=== PATIENT | male | born 1955 | race Caucasian/White ===

== ENCOUNTER 2018-05-10 10:30 | Inpatient (IN) ==
--- NOTE | 2018-05-10 11:25 | Emergency Department Note ---
Disposition Clinical Impression: Cellulitis Qualifiers: Site of cellulitis: other site Qualified Code(s): L03.818 - Cellulitis of other sites Disposition: Admitted As Inpatient Condition: Fair Referrals: Lucy Mackay CNP [Primary Care Provider] - Forms: ED Satisfaction Letter Time of Disposition: 13:34 General Adult HPI - General Chief complaint: ED Extremity Problem,Nontraumatic Stated complaint: RLE Cellulitis Time Seen by Provider: 05/10/18 11:01 Source: patient, family Limitations: no limitations - History of Present Illness Pain Scale: 6 - Related Data Home Medications Medication Instructions Recorded Confirmed Albuterol Sulfate [Proair Hfa] 2 puff IH Q4H PRN 05/10/18 05/10/18 Ascorbic Acid [Vitamin C] 100 mg PO DAILY 05/10/18 05/10/18 Aspirin Enteric Coated [Aspirin EC] 325 mg PO DAILY 05/10/18 05/10/18 Carvedilol 3.125 mg PO BID 05/10/18 05/10/18 Furosemide [Lasix] 20 mg PO QAM 05/10/18 05/10/18 Furosemide [Lasix] 40 mg PO QPM PRN 05/10/18 05/10/18 HydrOXYzine Pamoate [Vistaril] 50 mg PO Q8H 05/10/18 05/10/18 Ipratropium/Albuterol Neb [Duoneb] 3 ml IH Q6HR 05/10/18 05/10/18 Lisinopril [Zestril] 40 mg PO DAILY 05/10/18 05/10/18 Simvastatin [Zocor] 20 mg PO HS 05/10/18 05/10/18 Tamsulosin [Flomax] 0.4 mg PO DAILY 05/10/18 05/10/18 Vitamin E 1,000 unit PO DAILY 05/10/18 05/10/18 glyBURIDE [GlyBURIDE] 5 mg PO DAILY 05/10/18 05/10/18 Allergies Allergy/AdvReac Type Severity Reaction Status Date / Time No Known Allergies Allergy Verified 05/10/18 10:33 Past Medical History - Past Medical History Medical history: Reports: diabetes, hypertension, myocardial infarction Psychiatric history: Reports: no psych history - Social History Smoking Status: Current every day smoker Smokeless Tobacco Status: No Alcohol use: Reports: none Drug use: Reports: none Physical Exam - General Limitations: no limitations General appearance: alert, in no apparent distress Course Vital Signs Temperature 97.5 F L 05/10/18 10:33 Pulse Rate 57 05/10/18 10:33 Respiratory Rate 16 05/10/18 10:33 Blood Pressure 216/101 05/10/18 10:33 O2 Sat by Pulse Oximetry 96 05/10/18 10:33 Temperature 97.5 F L 05/10/18 11:13 Pulse Rate 57 05/10/18 11:13 Respiratory Rate 16 05/10/18 11:13 Blood Pressure 216/101 05/10/18 11:13 O2 Sat by Pulse Oximetry 96 05/10/18 11:13 Oxygen Delivery Oxygen Delivery Room Air Medical Decision Making - Lab Data Result diagrams: 05/10/18 12:02 05/10/18 12:02 Lab Results 05/10/18 05/10/18 Range/Units 12:02 12:02 WBC 9.1 (4.3-11.1) K/mcL RBC 5.32 (4.19-5.50) M/mcL Hgb 16.5 (12.9-16.9) g/dL Hct 50.3 H (37.5-50.1) % MCV 94.5 (83.0-100.0) fL MCH 31.0 (28.0-33.3) pg MCHC 32.8 (31.6-35.5) g/dL RDW 13.7 (11.5-14.5) % Plt Count 168 (140-400) K/mcL MPV 9.4 (9.4-12.4) fL Immature Gran % 0.3 (0-4) % Seg Neutrophils % 72.5 % Lymphocytes % 19.6 % Monocytes % 4.6 % Eosinophils % 2.4 % Basophils % 0.6 % Neutrophils # 6.6 (1.6-8.9) K/mcL Lymphocytes # 1.8 (0.6-4.6) K/mcL Monocytes # 0.4 (0.0-1.3) K/mcL Eosinophils # 0.2 (0.0-0.6) K/mcL Basophils # 0.1 (0.0-0.2) K/mcL Sodium 141 (136-145) mEq/L Potassium 4.5 (3.5-5.1) mEq/L Chloride 104 (98-107) mEq/L Carbon Dioxide 31 H (23-29) mEq/L BUN 33 H (8-23) mg/dL Creatinine 2.06 H (0.70-1.30) mg/dL Est GFR ( Amer) 40 L (> 60) Est GFR (Non-Af Amer) 33 L (> 60) BUN/Creatinine Ratio 16 (6-26) Glucose 175 H (70-105) mg/dL Calculated Osmolality 304 H (280-300) Calcium 9.0 (8.6-10.3) mg/dL Attestation Statement - Attestation Attestation: I examined this patient and my medical decision-making was reviewed with the Resident Physician. I agree with the documented findings, disposition and treatment plan as described except to the extent set forth below. Patient presents to the ED with a chief complaint of right leg infection. Onset 1 month ago. He saw his PCP and was started on a by mouth antibiotic. States he was called to come to the ED for IV antibiotics. No fevers. Patient is a diabetic. Poorly controlled hypertensive. On examination he has some erythema to the right mazariegos. There is also some oozing of serous fluid. Plan. Culture sent. IV antibiotic likely admission as he started outpatient treatment. No DVT. Patient admitted for IV antibiotic. He does not meet sepsis criteria. Wound culture sent. Patient is given Zosyn and vancomycin.
--- NOTE | 2018-05-10 11:51 | Emergency Department Note ---
Disposition Clinical Impression: Cellulitis Qualifiers: Site of cellulitis: other site Qualified Code(s): L03.818 - Cellulitis of other sites Disposition: Admitted As Inpatient Condition: Fair Referrals: Lucy Mackay CNP [Primary Care Provider] - Forms: ED Satisfaction Letter Time of Disposition: 13:31 General Adult HPI - General Chief complaint: ED Extremity Problem,Nontraumatic Stated complaint: RLE Cellulitis Time Seen by Provider: 05/10/18 11:01 Source: patient, family Mode of arrival: ambulatory Limitations: no limitations Nursing Notes Reviewed: Yes Vital Signs Reviewed: Yes - History of Present Illness HPI Narrative: Patient is a 62-year-old male with a past medical history of diet-controlled diabetes, hypertension presents to the emergency department for evaluation of right lower extremity swelling and drainage. The patient states that the symptoms started approximately 1.5 months ago. He states he noticed that there was a area of drainage over his right anterior mazariegos states that he tried treating at home with hydrogen peroxide for a week and then it was not improving so he followed up with his primary care physician who is a nurse practitioner and she prescribed him an antibiotic by mouth for an unknown duration of time according to the patient. He states that he called her office today and was told that he needs to come to the emergency department for IV antibiotics. According to the patient he has continued to have drainage through this right lower extremity wound as well as diffuse lower extremity pain. He denies any numbness or tingling. Denies any history of blood clots. He states that he did have history of a infection of the skin over his right posterior shoulder which caused him to become septic and he was admitted to the hospital for a month in the past. Pain Scale: 6 - Related Data Home Medications Medication Instructions Recorded Confirmed Albuterol Sulfate [Proair Hfa] 2 puff IH Q4H PRN 05/10/18 05/10/18 Ascorbic Acid [Vitamin C] 100 mg PO DAILY 05/10/18 05/10/18 Aspirin Enteric Coated [Aspirin EC] 325 mg PO DAILY 05/10/18 05/10/18 Carvedilol 3.125 mg PO BID 05/10/18 05/10/18 Furosemide [Lasix] 20 mg PO QAM 05/10/18 05/10/18 Furosemide [Lasix] 40 mg PO QPM PRN 05/10/18 05/10/18 HydrOXYzine Pamoate [Vistaril] 50 mg PO Q8H 05/10/18 05/10/18 Ipratropium/Albuterol Neb [Duoneb] 3 ml IH Q6HR 05/10/18 05/10/18 Lisinopril [Zestril] 40 mg PO DAILY 05/10/18 05/10/18 Simvastatin [Zocor] 20 mg PO HS 05/10/18 05/10/18 Tamsulosin [Flomax] 0.4 mg PO DAILY 05/10/18 05/10/18 Vitamin E 1,000 unit PO DAILY 05/10/18 05/10/18 glyBURIDE [GlyBURIDE] 5 mg PO DAILY 05/10/18 05/10/18 Allergies Allergy/AdvReac Type Severity Reaction Status Date / Time No Known Allergies Allergy Verified 05/10/18 10:33 All systems ED: reviewed and negative except as stated. Review of Systems: As Per HPI Constitutional: Denies: fever Cardiovascular: Denies: chest pain, palpitations Respiratory: Denies: cough, dyspnea, wheezes Gastrointestinal: Denies: abdominal pain, nausea, vomiting Musculoskeletal: Denies: back pain, neck pain Integumentary: Reports: rash (Right lower extremity) Past Medical History - Past Medical History Attestation: Yes The following information was validated with the patient. Medical history: Reports: diabetes, hypertension, myocardial infarction Psychiatric history: Reports: no psych history - Social History Smoking Status: Current every day smoker Smokeless Tobacco Status: No Alcohol use: Reports: none Drug use: Reports: none Physical Exam CONSTITUTIONAL: Patient is unkempt in appearance and has multiple areas of what appear to be dirt over his upper and lower extremities. A&O X 3, in no apparent distress. HEAD: Normocephalic; atraumatic EYES: PERRL, no scleral icterus NOSE: The nose is normal in appearance without rhinorrhea NECK: No JVD or distended neck veins RESP: Normal chest excursion with respiration; breath sounds clear and equal bilaterally; no wheezes, rhonchi, or rales CARD: Regular rhythm, without murmurs, rub or gallop ABD: Non-distended; non-tender, soft, without rigidity, rebound or guarding,no pulsatile mass CHEST: No pain with palpation SKIN: Skin over his right lower extremity is mostly effected near the anterior medial mazariegos there is a large area of what appears to be superficial skin that appears to be were all with a mucopurulent drainage present. He has +2 dorsalis pedis and posterior tibialis pulses. EXTREMITIES: Pulses are 2 plus and equal times 4 extremities, He has mild edema is consistent bilateral extremities or calf muscle pain - General Limitations: no limitations General appearance: alert, in no apparent distress Course Course Narrative: Plan at this time is evaluate the patient's right lower extremity edema, pain, and drainage. His signs and symptoms do appear consistent with a cellulitis and given that the patient appears to have a difficult time with hygiene take care of himself with a history of admission for sepsis due to cellulitis plan at this time is to order basic labs and rule out a DVT of his right lower extremity and then he will need to come in to the hospital for further treatment concerning that he has failed outpatient antibiotics. The patient agrees this plan. - Reevaluation(s) Reevaluation #1: Patient's ultrasound of his right lower extremity was negative for DVT. Patient was started on broad-spectrum antibiotic coverage for his cellulitis given fell outpatient treatment. I discussed the patient's case with Dr. Proctor , and he agrees to accept the patient. Time: 13:32 Vital Signs Temperature 97.5 F L 05/10/18 10:33 Pulse Rate 57 05/10/18 10:33 Respiratory Rate 16 05/10/18 10:33 Blood Pressure 216/101 05/10/18 10:33 O2 Sat by Pulse Oximetry 96 05/10/18 10:33 Temperature 97.5 F L 05/10/18 11:13 Pulse Rate 57 05/10/18 11:13 Respiratory Rate 16 05/10/18 11:13 Blood Pressure 216/101 05/10/18 11:13 O2 Sat by Pulse Oximetry 96 05/10/18 11:13 Oxygen Delivery Oxygen Delivery Room Air Medical Decision Making - Medical Records Medical records reviewed: Yes I reviewed the patient's medical records. - Lab Data Lab results reviewed: Yes I reviewed the patient's lab results. Result diagrams: 05/10/18 12:02 05/10/18 12:02 Lab Results 05/10/18 05/10/18 Range/Units 12:02 12:02 WBC 9.1 (4.3-11.1) K/mcL RBC 5.32 (4.19-5.50) M/mcL Hgb 16.5 (12.9-16.9) g/dL Hct 50.3 H (37.5-50.1) % MCV 94.5 (83.0-100.0) fL MCH 31.0 (28.0-33.3) pg MCHC 32.8 (31.6-35.5) g/dL RDW 13.7 (11.5-14.5) % Plt Count 168 (140-400) K/mcL MPV 9.4 (9.4-12.4) fL Immature Gran % 0.3 (0-4) % Seg Neutrophils % 72.5 % Lymphocytes % 19.6 % Monocytes % 4.6 % Eosinophils % 2.4 % Basophils % 0.6 % Neutrophils # 6.6 (1.6-8.9) K/mcL Lymphocytes # 1.8 (0.6-4.6) K/mcL Monocytes # 0.4 (0.0-1.3) K/mcL Eosinophils # 0.2 (0.0-0.6) K/mcL Basophils # 0.1 (0.0-0.2) K/mcL Sodium 141 (136-145) mEq/L Potassium 4.5 (3.5-5.1) mEq/L Chloride 104 (98-107) mEq/L Carbon Dioxide 31 H (23-29) mEq/L BUN 33 H (8-23) mg/dL Creatinine 2.06 H (0.70-1.30) mg/dL Est GFR ( Amer) 40 L (> 60) Est GFR (Non-Af Amer) 33 L (> 60) BUN/Creatinine Ratio 16 (6-26) Glucose 175 H (70-105) mg/dL Calculated Osmolality 304 H (280-300) Calcium 9.0 (8.6-10.3) mg/dL
[2018-05-10] MEDS ORDERED: *HR* Labetalol 100 MG/20 ML MDV IVP ONE (12:01)
[2018-05-10 12:15] LABS: Basophils # 0.1 K/mcL (0.0-0.2); Basophils % 0.6 %; Eosinophils # 0.2 K/mcL (0.0-0.6); Eosinophils % 2.4 %; Hematocrit 50.3 % (37.5-50.1); Hemoglobin 16.5 g/dL (12.9-16.9); Immature Granulocytes % 0.3 % (0-4); Lymphocytes # 1.8 K/mcL (0.6-4.6); Lymphocytes % 19.6 %; Mean Corpuscular HGB Conc 32.8 g/dL (31.6-35.5); Mean Corpuscular Volume 94.5 fL (83.0-100.0); Mean Platelet Volume 9.4 fL (9.4-12.4); Monocytes # 0.4 K/mcL (0.0-1.3); Monocytes % 4.6 %; Neutrophils # 6.6 K/mcL (1.6-8.9); Platelet Count 168 K/mcL (140-400); Red Blood Count 5.32 M/mcL (4.19-5.50); Red Cell Distribution Width 13.7 % (11.5-14.5); Segmented Neutrophils % 72.5 %
[2018-05-10 12:34] LABS: Potassium 4.5 mEq/L (3.5-5.1)
[2018-05-10] MEDS ORDERED: Piperacillin/Tazobactam 3.375 GM in Water for inj. (sterile) 20 ML 20 ML IVP ONE (13:29)
[2018-05-10] MEDS ORDERED: *HR* Labetalol 20 MG/4 ML SYRINGE IVP ONE (13:30)
--- NOTE | 2018-05-10 17:13 | Internal Med History&Physical ---
Date of Encounter: 05/10/18 Time of Encounter: 15:00 Internal Medicine - H&P: HPI Chief complaint: Swelling, pain and infection lower legs, shortness of breath . Admitted From: Emergency Dept Plans for Post Hospital Care: Home (Latrice Miller is 62-year-old male who enters through the emergency room for chief complaint of swelling pain and infection of the lower limbs shortness of breath. He states that he was seen by his primary care and that they recommended that he be seen in the emergency room for cellulitis of the lower extremities. Reports that onset of signs and symptoms occurred approximately 1-1/2 months ago he does have areas on the right anterior mazariegos that are draining a serous fluid and he has been using hydrogen peroxide for about a week movement in the drainage or the swelling of the lower extremities . He states that his primary care provider whom is a nurse practitioner has prescribed him oral antibiotics but they have not been effective in decreasing the swelling or the drainage from the legs.Past history is positive for diabetes type 2 hypertension) History of present illness: Mr. Miller is a 62 year old male who enters through the emergency room for chief complaint of swelling pain and infection of the lower limbs, and shortness of breath. He states that he was seen by his primary care and that they recommended that he be seen in the emergency room for cellulitis of the lower extremities. Reports that onset of signs and symptoms occurred approximately 1-1/2 months ago, and has worsened over time. He states that he has areas on the areas on the right anterior mazariegos that are draining a serous fluid. He has been using hydrogen peroxide for about a week w/o improvement in the drainage or the swelling of the lower extremities . He states that his primary care provider whom is a nurse practitioner has prescribed him oral antibiotics but they have not been effective in decreasing the swelling or the drainage from the legs. He is unaware of how long he has used the medication. He rates his pain as mild L4 on a scale of 10 intermittently worse with ambulation prolonged standing and dependent position. He denies any numbness or tingling or weakness in the lower extremities at this time denies history of blood clots or pulmonary embolism. In the emergency room he was given Zosyn and vancomycin for the cellulites in the lower extremities. Blood pressure was normal in the malignant high with 216 /101, he was given labetalol 10 mg IV push at that time in the emergency room 1 dose. It was decided to have the patient admitted to observation unit for better evaluation of cellulites congestive heart failure swelling of the lower extremities and hypertension . Past history is positive for diabetes type 2, hypertension, congestive heart failure. Home medications were reconciled and he does show that he uses albuterol sulfate H with a DuoNeb hand-held nebulizers every 6 hours takes large adult aspirin 325 daily is on Coreg 3.125 mg twice daily Lasix 40 mg daily glyburide 5 mg daily lisinopril 4040 mg daily and simvastatin 20 mg daily along with Flomax 0.4 mg at at bedtime. Review of initial labs shows that he has a hemoglobin of 16.5 with hematocrit of 50.3 which is elevated, carbon dioxide is elevated at 31 BUN is elevated at 33 with an elevated crit of 2.06 GFR is 33. Patient will be consulted by nephrology for acute kidney injury stage III moderate renal failure. Glucose was elevated at 175. Social history is positive for smoking 2 packs per day, he denies any use of illicit drugs or alcohol. Past Med Surg Social Fam HX - Past Medical History Source: patient Medical history: CHF, COPD, diabetes, hypertension, myocardial infarction Psychiatric history: no psych history - Social History Smoking Status: Heavy tobacco smoker Packs per day: 2 Smokeless Tobacco Status: Yes (2 PPD x 40+ years) Alcohol use: none Drug use: none Current living situation: Home - Independent Activity Level: Independent ambulation Recent Out of Country Travel Within the Last 8 Weeks: No Exposure or Possible Exposure to Illness During Travel: No Internal Medicine - H&P: Meds Albuterol Sulfate [Proair Hfa] 2 puff IH Q4H PRN 05/10/18 [History] Ascorbic Acid [Vitamin C] 100 mg PO DAILY 05/10/18 [History] Aspirin Enteric Coated [Aspirin EC] 325 mg PO DAILY 05/10/18 [History] Carvedilol 3.125 mg PO BID 05/10/18 [History] Furosemide [Lasix] 20 mg PO QAM 05/10/18 [History] Furosemide [Lasix] 40 mg PO QPM PRN 05/10/18 [History] HydrOXYzine Pamoate [Vistaril] 50 mg PO Q8H 05/10/18 [History] Ipratropium/Albuterol Neb [Duoneb] 3 ml IH Q6HR 05/10/18 [History] Lisinopril [Zestril] 40 mg PO DAILY 05/10/18 [History] Simvastatin [Zocor] 20 mg PO HS 05/10/18 [History] Tamsulosin [Flomax] 0.4 mg PO DAILY 05/10/18 [History] Vitamin E 1,000 unit PO DAILY 05/10/18 [History] glyBURIDE [GlyBURIDE] 5 mg PO DAILY 05/10/18 [History] 3 Allergy/AdvReac Type Severity Reaction Status Date / Time No Known Allergies Allergy Verified 05/10/18 10:33 All Systems PM: A 10-system review of systems was performed and is negative for pertinent findings except as documented above in the HPI. - Constitutional Constitutional: as per HPI - EENT Eyes: no change in vision, no discharge, no pain, no photophobia Ears: no ear discharge, no ear pain, no tinnitus Nose, mouth and throat: no dysphagia, no nasal discharge, no neck pain, no sore throat - Cardiovascular Cardiovascular ROS IM: dyspnea, dyspnea on exertion, edema, orthopnea, no diaphoresis, no irregular heart rhythm, no palpitations, no syncope - Respiratory Respiratory: cough, dyspnea, dyspnea on exertion, wheezing, chest congestion, excessive phlegm production - Gastrointestinal Gastrointestinal: no abdominal pain, no diarrhea, no hematemesis, no hematochezia, no melena, no nausea, no vomiting - Genitourinary Genitourinary ROS male: as per HPI - Musculoskeletal Musculoskeletal ROS IM: myalgias Additional comments: sswelling drqainage, and pain bilateral lower ext. - Integumentary Integumentary IM: erythema, new lesions, rash Additional comments: serous drainage, right lower anterior leg - Neurological Neurological ROS: no confusion, no convulsions, no focal weakness, no numbness, no tingling, no tremor(s) - Psychiatric Psychiatric: anxiety, irritability Additional comments: uanable to sleep d/t pain in lower ext. - Endocrine Endocrine IM: as per HPI - Hematologic/Lymphatic Additional comments: lymphedema lower ext bilat - Allergic/Immunologic Allergic/Immunologic: as per HPI - Constitutional Vitals: Temp Pulse Resp BP Pulse Ox 97.7 F 49 15 184/96 94 05/10/18 14:35 05/10/18 14:35 05/10/18 14:35 05/10/18 14:35 05/10/18 14:35 General appearance: Present: cooperative, A&O X 3, morbidly obese, pleasant Exam: remains hypertensive will add norvasc 5 mg to daily medications - Head Head exam: Present: atraumatic, normocephalic - Eye Eye exam: Present: PERRL, conjuntiva pink, sclera anicteric Pupils: Present: PERRL - Neck Neck exam general surgery: Present: supple, trachea midline. Absent: lymphadenopathy - Respiratory Respiratory exam: Present: decreased breath sounds, wheezes - Cardiovascular Cardiovascular exam: Present: RRR, +S1, +S2. Absent: diastolic murmur, gallop, rubs, systolic murmur - GI/Abdominal GI/Abdominal exam: Present: normal bowel sounds - Extremities Exam Extremities exam: Present: joint swelling, pedal edema, tenderness Additional comments: 2+ non-pitting edema, with serous drainage, erythema right anterior tibia, left pedal edema with erythema distal 2/3rds lower ext. - Neurological Exam Neurological exam: Present: CN II-XII intact, oriented X3, no focal deficits. Absent: pronater drift, facial droop, speech deficit - Psychiatric Psychiatric exam: Present: normal affect, normal mood - Skin Skin exam: Present: erythema Additional comments: bilat 2/3rds lower ext. Internal Med - H&P Results - Labs CBC & Chem 7: 05/10/18 12:02 05/10/18 12:02 - Time Spent With Patient Total time spent is greater than 50% in coordination of care (as documented) at patient's floor/unit and/or counseling patient:
[2018-05-10] MEDS ORDERED: Insulin LISPRO 300 UNITS/3 ML VIAL SQ SCH (18:00)
[2018-05-10] MEDS ORDERED: Ipratropium/Albuterol Neb 3 ML IH SCH (18:00)
[2018-05-10] MEDS ORDERED: Dextrose Gel 15 GM/37.5 ML TUBE PO PRN ×2 (18:57)
[2018-05-10] MEDS ORDERED: D5% in Water 1,000 ML IVC PRN (18:57)
[2018-05-10] MEDS ORDERED: *HR* Dextrose 50 % in Water (Syg) 50 ML SYRINGE IVP PRN (18:57)
[2018-05-10] MEDS: *HR* HYDROcodone/Acet 5/325 mg TABLET PO PRN ×2 (19:25→23:59)
[2018-05-10] MEDS: Nicotine 21 MG PATCH.TD24 TD SCH (19:28)
[2018-05-10] MEDS: amLODIPine 5 MG TABLET PO SCH (19:28)
[2018-05-10] MEDS ORDERED: Ipratropium/Albuterol Neb 3 ML IH PRN (20:47)
[2018-05-10] MEDS: Insulin DETEMIR 100 UNIT/ML X5UNITS SQ SCH (21:35)
[2018-05-10] MEDS: 0.9 % Sodium Chloride PF in SYR 10 ML VIAL IVP SCH (21:37)
[2018-05-10] MEDS: hydrOXYzine pamoate 25 MG CAPSULE PO PRN (21:37)
[2018-05-10] MEDS: Ipratropium/Albuterol Neb 3 ML IH SCH (21:42)
[2018-05-10] MEDS: Piperacillin/Tazobactam 3.375 GM in 0.9 % Sodium Chloride Mini Bag 100 ML IVPB SCH (23:55)
[2018-05-11] MEDS: Ipratropium/Albuterol Neb 3 ML IH SCH ×4 (03:20→21:34)
[2018-05-11] MEDS: hydrOXYzine pamoate 25 MG CAPSULE PO PRN ×2 (04:12→20:45)
[2018-05-11] MEDS: *HR* Enoxaparin 150 MG/ML SYRINGE SQ SCH ×2 (04:12→17:47)
[2018-05-11] MEDS: *HR* HYDROcodone/Acet 5/325 mg TABLET PO PRN ×3 (04:13→22:09)
[2018-05-11] MEDS: 0.9 % Sodium Chloride PF in SYR 10 ML VIAL IVP SCH ×4 (04:15→20:44)
[2018-05-11] MEDS ORDERED: Insulin LISPRO 300 UNITS/3 ML VIAL SQ SCH (08:00)
[2018-05-11] MEDS ORDERED: Lisinopril 20 MG TABLET PO SCH (09:00)
[2018-05-11 09:51] LABS: Estimated Average Glucose 128 mg/dl; Hemoglobin A1C 6.1 %
--- NOTE | 2018-05-11 10:29 | Nephrology Consult Note ---
Date of Encounter: 05/11/18 Time of Encounter: 11:05 Assessment and Plan (1) DAHLIA (acute kidney injury) Current Visit: Yes Status: Acute DAHLIA on CKD stage III with cellulitis, recent hvy use of NSAIDs, hemodynamics and hence multifactorial etiologies appear to be contributing in the setting of CKD stage III from DM. Should hold Lisinopril. He is at risk for even worsened DAHLIA d/t the need for diuresis of his signifiant peripheral edema (which could also represent A/C Systolic HF -- see below), but also from the medications. Recommend holding Lisinopril and starting an DAHLIA on CKD work up with UA, retroperitoneal U/S, and etc. No urgent DISPATCHER REFINERY needs today, but continue to follow a renal protective strategy by dosing Rx by GFR/CrCl (cody the [facility] and generally pharmacy will dose in this scenario), plus strict I/Os, daily weights, low Na/K+/Phos diet. Will follow with you. Of note, my colleague Dr. Granados will start rounding for the Nephrology service tomorrow. Thank you. (2) CKD (chronic kidney disease), stage III Current Visit: Yes Status: Acute Renal risk factors: DM, Obesity, CHF hx. I saw in his PCP's notes that he had seen a aircraft ordnance systems mechanic outside of the [place] system, but I could not find any Consult notes from Nephro. There was also a comment in the encounter with his PCP from last week in which he reported that he stopped follow up with his aircraft ordnance systems mechanic. (3) Peripheral edema Current Visit: Yes Status: Acute Acute on Chronic likely multifactorial in etiology with dietary indiscretion plus known systolic HF. Recommend Echo as he may be in Acute on chronic systolic HF. The peripheral edema has also likely contributed to his Cellulitis. (4) Diabetic renal disease Current Visit: Yes Status: Chronic His longstanding DM is likely a contributor to his CKD. Qualifiers: Diabetes mellitus type: type 2 Qualified Code(s): E11.21 - Type 2 diabetes mellitus with diabetic nephropathy (5) Chronic systolic CHF (congestive heart failure) Current Visit: Yes Status: Chronic I reviewed the notes in his PCP's eCW chart that commented on an Echo from October with an EF of about 35% that was found during a hospitalization at [facility], and during which he underwent a [facility] d/t the new finding of CHF. In the PCP's notes, the pt reported during a visit earlier this week that he stopped following up with his coremaker pipe and stopped checking BPs and BGs at home. (6) Cellulitis Current Visit: Yes Status: Acute As per primary, but I recommend caution with dual Vano and Zosyn as this combo has a higher potential for ATN from nephrotoxicity, and he already has DAHLIA on CKD 3. Qualifiers: Site of cellulitis: other site Qualified Code(s): L03.818 - Cellulitis of other sites History of Present Illness - Reason for Consult Consult date: 05/10/18 Acute Kidney Injury, Chronic Kidney Disease Requesting physician: Ene Garcia - Chief Complaint Worsening LE swelling with cellulitis - History of Present Illness Hermes Miller is a very pleasant 62 y/o gentleman with a pmh of longstanding/ poorly controlled T2DM, obesity, HTN, CAD and et al who presented with cellulitis and worsened lower extremity edema. He reported that he's been "lots " of IBU. He did not affirm N/v/D or F/C. He said he may have seen a prior aircraft ordnance systems mechanic, but he cannot recall when or who. I logged into [facility] and he affirmed what I read, that he stopped going to see his coremaker pipe and other specialists due to not having money for a co-pay. He did not affirm CP. Past Med Surg Social Fam HX - Past Medical History Medical history: CHF, COPD, diabetes, hypertension, myocardial infarction Psychiatric history: no psych history - Social History Smoking Status: Heavy tobacco smoker Packs per day: 2 Smokeless Tobacco Status: Yes (2 PPD x 40+ years) Alcohol use: none Drug use: none Medications and Allergies Albuterol Sulfate [Proair Hfa] 2 puff IH Q4H PRN 05/10/18 [History] Ascorbic Acid [Vitamin C] 100 mg PO DAILY 05/10/18 [History] Aspirin Enteric Coated [Aspirin EC] 325 mg PO DAILY 05/10/18 [History] Carvedilol 3.125 mg PO BID 05/10/18 [History] Furosemide [Lasix] 20 mg PO QAM 05/10/18 [History] Furosemide [Lasix] 40 mg PO QPM PRN 05/10/18 [History] HydrOXYzine Pamoate [Vistaril] 50 mg PO Q8H 05/10/18 [History] Ipratropium/Albuterol Neb [Duoneb] 3 ml IH Q6HR 05/10/18 [History] Lisinopril [Zestril] 40 mg PO DAILY 05/10/18 [History] Simvastatin [Zocor] 20 mg PO HS 05/10/18 [History] Tamsulosin [Flomax] 0.4 mg PO DAILY 05/10/18 [History] Vitamin E 1,000 unit PO DAILY 05/10/18 [History] glyBURIDE [GlyBURIDE] 5 mg PO DAILY 05/10/18 [History] Sulfamethoxazole/Trimeth DS [Bactrim DS] 1 each PO BID 10 Days #20 tablet [Rx] amLODIPine [Norvasc] 5 mg PO DAILY #30 tablet 05/13/18 [Rx] 3 Allergy/AdvReac Type Severity Reaction Status Date / Time No Known Allergies Allergy Verified 05/10/18 10:33 Review of Systems All Systems: reviewed and no additional remarkable complaints except as stated Exam - Vital Signs Vital signs: Initial Vital Signs Temp Pulse Resp BP Pulse Ox 97.5 F L 57 16 216/101 96 05/10/18 10:33 05/10/18 10:33 05/10/18 10:33 05/10/18 10:33 05/10/18 10:33 Vital Signs - Last 8 Hours Temp Pulse Resp BP Pulse Ox 05/11/18 07:23 97.8 F 66 18 191/78 91 05/11/18 03:22 14 93 Intake and Output 05/10/18 05/11/18 05/11/18 23:59 07:59 15:59 Intake Total 500 / 500 340 / 340 240 / 240 Balance 500 / 500 340 / 340 240 / 240 Intake: IV Fluids 500 / 500 100 / 100 Zosyn 3.375 GM In 0.9 % Sodium 100 / 100 Chloride (Mini-Bag +) 100 ML @ 25 mls/hr IVPB Q8HR [facility] Rx#: [id number] Vancocin 2,000 MG In 0.9 % 500 / 500 Sodium Chloride 500 ML @ 250 mls/hr IVPB ONCE ONE Rx#: [id number] Oral 240 / 240 240 / 240 Other: Meal Breakfast Percent of Meal Consumed 100% # Voids 1 Weight 148.3 kg Blood Glucose* 219 132 Patient Weight 05/11/18 23:59 Weight 148.3 kg - General Appearance General appearance: well-developed, well-nourished, appears started age, obese EENT: ATNC, PERRL, mucous membranes moist Neck: supple Respiratory: course breath sounds Cardiology: edema, regular rate, regular rhythm, normal S1, normal S2 Gastrointestinal: normoactive bowel sounds, no tenderness, no guarding Integumentary: no rash, warm and dry, chronic venous stasis Neurologic: no focal deficit, no asterixis, alert and oriented x3 Musculoskeletal: erythema, no cyanosis, no clubbing Psychiatric: mood/affect appropriate, cooperative Results - Lab Results 05/13/18 06:29 05/13/18 06:29 Most recent lab results Calcium 9.0 mg/dL (8.6-10.3) 05/10/18 12:02 I reviewed the labs, vitals, imaging, progress notes, med lists. Consult Discharge Plan - Plan Instructions: Cellulitis (DC) Additional Instructions: Cleanse bilateral lower extremities with CHG soap daily and keep elevated as often as tolerated. F/U with PCP on 05/16. Referrals: Lucy Mackay CNP [Primary Care Provider] - 05/21/18 1:00 pm Prescriptions: amLODIPine [Norvasc] 5 mg PO DAILY #30 tablet Sulfamethoxazole/Trimeth DS [Bactrim DS] 1 each PO BID 10 Days #20 tablet
--- NOTE | 2018-05-11 11:12 | Internal Med Progress Note ---
Hospitalist Progress Note - Encounter Date of Encounter: 05/11/18 Time of Encounter: 11:10 - Subjective Interval History: Pt states he has been self treating flea bites with balm. He states LE wound was foul smelling and had purulent drainage but has slowly been improving. He denies fever, chills, N/V, or diarrhea. He denies CP or SOB. - Exam Vitals: Temp Pulse Resp BP Pulse Ox 97.8 F 66 18 191/78 91 05/11/18 07:23 05/11/18 07:23 05/11/18 07:23 05/11/18 07:23 05/11/18 07:23 Exam: General appearance: Present: cooperative, A&O X 3, morbidly obese, pleasant. Very poor hygiene. Exam: remains hypertensive will add norvasc 5 mg to daily medications - Head Head exam: Present: atraumatic, normocephalic - Eye Eye exam: Present: PERRL, conjuntiva pink, sclera anicteric Pupils: Present: PERRL - Neck Neck exam general surgery: Present: supple, trachea midline. Absent: lymphadenopathy - Respiratory Respiratory exam: Present: decreased breath sounds, wheezes - Cardiovascular Cardiovascular exam: Present: RRR, +S1, +S2. Absent: diastolic murmur, gallop, rubs, systolic murmur - GI/Abdominal GI/Abdominal exam: Present: normal bowel sounds - Extremities Exam Extremities exam: Present: joint swelling, bilat 2/3rds lower ext. , tenderness Additional comments: 2+ non-pitting edema, with serous drainage, erythema right anterior tibia, left pedal edema with erythema distal 2/3rds lower ext. - Neurological Exam Neurological exam: Present: CN II-XII intact, oriented X3, no focal deficits. Absent: pronater drift, facial droop, speech deficit - Psychiatric Psychiatric exam: Present: normal affect, normal mood - Skin Skin exam: Present: erythema, and multiple LE blisters. Additional comments: - Assessment and Plan (1) DAHLIA (acute kidney injury) Current Visit: Yes Status: Acute Assessment and Plan: Will check urine. Nephrology on board. Will check renal function daily. (2) CKD (chronic kidney disease), stage III Current Visit: Yes Status: Acute Assessment and Plan: Neprhology on board and following. Will monitor renal function daily. (3) Type II diabetes mellitus Current Visit: Yes Status: Acute Assessment and Plan: On SSI and basal. Hgb A1c 6.1. Will continue to monitor. (4) Cellulitis Current Visit: Yes Status: Acute Assessment and Plan: Continue Vancomycin and Zosyn for now. Wound culture sent 05/10/2018. Will make adjustments to antibiotic as deemed necessary once culture results. (5) Chronic systolic CHF (congestive heart failure) Current Visit: Yes Status: Chronic Assessment and Plan: Pt is s/p heart cath October 2017. Pt had reported to PCP that he had stopped checking his BP and BG. HE states he has been taking his Lasix. (6) Peripheral edema Current Visit: Yes Status: Acute Assessment and Plan: Will check echo if not already ordered to assess EF and acute vs chronic systolic CHF. (7) Flea infestation Current Visit: Yes Status: Acute Assessment and Plan: Pt states he has been self managing LE flea infestation with "balm". States he has gotten rid of most of them. Ordering Permethrin shampoo. - Summary of Assessment and Plan Summary of Assessment and Plan: Mr. Miller is a 62 year old male who enters through the emergency room for chief complaint of swelling pain and infection of the lower limbs, and shortness of breath. He states that he was seen by his primary care and that they recommended that he be seen in the emergency room for cellulitis of the lower extremities. - Time Spent with Patient Total time spent is greater than 50% in coordination of care (as documented) at patient's floor/unit and/or counseling patient: Plan of Care Discussed with: patient Internal Medicine: Result - Labs CBC & Chem 7: 05/10/18 12:02 05/10/18 12:02 - Impressions Impressions Chest X-Ray 05/10/18 23:27 IMPRESSION: Suspect airway inflammation with possible nodular opacities at the right lung base suspicious for bronchiolitis. D/ / Tom Chamberlain / Tom Chamberlain Interpreting Provider: Tom Chamberlain Consult Discharge Plan - Plan Referrals: Lucy Mackay, SAFETY GLASS INSTALLER [Primary Care Provider] - (4) Cellulitis Qualifiers: Site of cellulitis: other site Qualified Code(s): L03.818 - Cellulitis of other sites
[2018-05-11] MEDS ORDERED: Permethrin Cream Rinse 60 ML LIQUID TP ONE (11:21)
[2018-05-11] MEDS: Insulin LISPRO 300 UNITS/3 ML VIAL SQ SCH ×3 (11:22→16:33)
[2018-05-11] MEDS: Piperacillin/Tazobactam 3.375 GM in 0.9 % Sodium Chloride Mini Bag 100 ML IVPB SCH ×3 (11:43→23:36)
[2018-05-11] MEDS: Aspirin Enteric Coated 325 MG Tablet PO SCH (11:43)
[2018-05-11] MEDS: Nicotine 21 MG PATCH.TD24 TD SCH (11:43)
[2018-05-11] MEDS: amLODIPine 5 MG TABLET PO SCH (11:43)
[2018-05-11] MEDS: Furosemide 40 MG TABLET PO SCH (11:44)
[2018-05-11] MEDS: *HR* GlyBURIDE 5 MG TABLET PO SCH (11:46)
[2018-05-11 12:48] LABS: Basophils % 0.5 %; Eosinophils # 0.2 K/mcL (0.0-0.6); Eosinophils % 2.7 %; Hematocrit 48.6 % (37.5-50.1); Hemoglobin 15.8 g/dL (12.9-16.9); Immature Granulocytes % 0.4 % (0-4); Lymphocytes # 0.8 K/mcL (0.6-4.6); Lymphocytes % 9.3 %; Mean Corpuscular HGB Conc 32.5 g/dL (31.6-35.5); Mean Corpuscular Volume 95.3 fL (83.0-100.0); Mean Platelet Volume 9.4 fL (9.4-12.4); Monocytes # 0.3 K/mcL (0.0-1.3); Monocytes % 3.4 %; Neutrophils # 6.9 K/mcL (1.6-8.9); Platelet Count 144 K/mcL (140-400); Red Cell Distribution Width 13.9 % (11.5-14.5); Segmented Neutrophils % 83.7 %
[2018-05-11 13:08] LABS: Calcium 8.6 mg/dL (8.6-10.3); Potassium 4.4 mEq/L (3.5-5.1)
[2018-05-11 13:25] LABS: Uric Acid 5.8 mg/dL (2.3-7.6)
[2018-05-11] MEDS: Insulin DETEMIR 100 UNIT/ML X5UNITS SQ SCH (21:27)
[2018-05-12] MEDS: *HR* HYDROcodone/Acet 5/325 mg TABLET PO PRN ×3 (04:39→19:31)
[2018-05-12] MEDS: 0.9 % Sodium Chloride PF in SYR 10 ML VIAL IVP SCH ×4 (04:39→22:04)
[2018-05-12] MEDS: Ipratropium/Albuterol Neb 3 ML IH SCH ×4 (04:57→22:49)
[2018-05-12] MEDS: *HR* Enoxaparin 150 MG/ML SYRINGE SQ SCH (05:11)
[2018-05-12] MEDS ORDERED: *HR* HYDROcodone/Acet 5/325 mg TABLET PO ONE (06:11)
[2018-05-12 06:41] LABS: Basophils # 0.1 K/mcL (0.0-0.2); Basophils % 0.5 %; Eosinophils # 0.2 K/mcL (0.0-0.6); Eosinophils % 2.4 %; Hematocrit 49.9 % (37.5-50.1); Hemoglobin 16.5 g/dL (12.9-16.9); Immature Granulocytes % 0.3 % (0-4); Lymphocytes # 1.4 K/mcL (0.6-4.6); Lymphocytes % 14.5 %; Mean Corpuscular HGB Conc 33.1 g/dL (31.6-35.5); Mean Corpuscular Hemoglobin 31.1 pg (28.0-33.3); Mean Platelet Volume 9.4 fL (9.4-12.4); Monocytes # 0.5 K/mcL (0.0-1.3); Monocytes % 4.9 %; Neutrophils # 7.2 K/mcL (1.6-8.9); Platelet Count 153 K/mcL (140-400); Red Blood Count 5.31 M/mcL (4.19-5.50); Red Cell Distribution Width 13.7 % (11.5-14.5); Segmented Neutrophils % 77.4 %
[2018-05-12 07:00] LABS: Albumin 3.6 g/dL (3.5-5.7); Calcium 9.1 mg/dL (8.6-10.3); Phosphorous 2.4 mg/dL (2.7-4.5); Potassium 4.2 mEq/L (3.5-5.1)
[2018-05-12] MEDS: Furosemide 40 MG TABLET PO SCH (08:46)
[2018-05-12] MEDS: Nicotine 21 MG PATCH.TD24 TD SCH (08:46)
[2018-05-12] MEDS: amLODIPine 5 MG TABLET PO SCH (08:46)
[2018-05-12] MEDS: Aspirin Enteric Coated 325 MG Tablet PO SCH (08:47)
[2018-05-12] MEDS: Insulin LISPRO 300 UNITS/3 ML VIAL SQ SCH ×3 (08:47→17:07)
[2018-05-12] MEDS: *HR* GlyBURIDE 5 MG TABLET PO SCH (08:47)
[2018-05-12] MEDS: Piperacillin/Tazobactam 3.375 GM in 0.9 % Sodium Chloride Mini Bag 100 ML IVPB SCH ×3 (08:49→23:45)
--- NOTE | 2018-05-12 13:42 | Internal Med Progress Note ---
Hospitalist Progress Note - Encounter Date of Encounter: 05/12/18 Time of Encounter: 19:20 - Subjective Interval History: Pt states he has been self treating flea bites with balm. He states LE wound was foul smelling and had purulent drainage but has slowly been improving. He denies fever, chills, N/V, or diarrhea. He denies CP or SOB. - Exam Vitals: Temp Pulse Resp BP Pulse Ox 97.9 F 56 16 159/63 91 05/12/18 13:27 05/12/18 13:27 05/12/18 13:27 05/12/18 13:27 05/12/18 13:27 Exam: General appearance: Present: cooperative, A&O X 3, morbidly obese, pleasant. Very poor hygiene. Exam: remains hypertensive will add norvasc 5 mg to daily medications - Head Head exam: Present: atraumatic, normocephalic - Eye Eye exam: Present: PERRL, conjuntiva pink, sclera anicteric Pupils: Present: PERRL - Neck Neck exam general surgery: Present: supple, trachea midline. Absent: lymphadenopathy - Respiratory Respiratory exam: Present: decreased breath sounds, wheezes - Cardiovascular Cardiovascular exam: Present: RRR, +S1, +S2. Absent: diastolic murmur, gallop, rubs, systolic murmur - GI/Abdominal GI/Abdominal exam: Present: normal bowel sounds - Extremities Exam Extremities exam: Present: joint swelling, bilat 2/3rds lower ext. , tenderness Additional comments: 2+ non-pitting edema, with serous drainage, erythema right anterior tibia, left pedal edema with erythema distal 2/3rds lower ext. - Neurological Exam Neurological exam: Present: CN II-XII intact, oriented X3, no focal deficits. Absent: pronater drift, facial droop, speech deficit - Psychiatric Psychiatric exam: Present: normal affect, normal mood - Skin Skin exam: Present: erythema, and multiple LE blisters. Additional comments: - Assessment and Plan (1) DAHLIA (acute kidney injury) Current Visit: Yes Status: Acute Assessment and Plan: Likely Multifactorial Recent heavy use of NSAIDs Lisinopril on hold. Nephrology on board. Cr down from 2.06 to 1.71. Avoid nephrotoxins. (2) CKD (chronic kidney disease), stage III Current Visit: Yes Status: Acute Assessment and Plan: Nephrology on board and following. Nephrology recommend follow up out pt at discharge with [facility] kidney specialist. Continue Lasix 40 mg PO daily. (3) Type II diabetes mellitus Current Visit: Yes Status: Acute Assessment and Plan: Levemir and SSI. His longstanding DM is likely a contributor to his CKD. (4) Cellulitis Current Visit: Yes Status: Acute Assessment and Plan: D/Kevin Vancomycin 05/11/18 as it is potentially nephrotoxic. Continue renally dosed Zosyn for now. (5) Chronic systolic CHF (congestive heart failure) Current Visit: Yes Status: Chronic Assessment and Plan: Lasix 40 mg PO QD. (6) Peripheral edema Current Visit: Yes Status: Acute Assessment and Plan: On Lasix 40 mg PO QD. (7) Flea infestation Current Visit: Yes Status: Acute Assessment and Plan: Permethrine DVT Prophylaxis: Lovenox - Summary of Assessment and Plan Summary of Assessment and Plan: Mr. Miller is a 62 year old male who enters through the emergency room for chief complaint of swelling pain and infection of the lower limbs, and shortness of breath. He states that he was seen by his primary care and that they recommended that he be seen in the emergency room for cellulitis of the lower extremities. - Time Spent with Patient Total time spent is greater than 50% in coordination of care (as documented) at patient's floor/unit and/or counseling patient: less than 15 minutes Plan of Care Discussed with: patient Internal Medicine: Result - Labs CBC & Chem 7: 05/12/18 06:28 05/12/18 06:28 Labs: Short CBC 05/12/18 Range/Units 06:28 WBC 9.3 (4.3-11.1) K/mcL Hgb 16.5 (12.9-16.9) g/dL Hct 49.9 (37.5-50.1) % Plt Count 153 (140-400) K/mcL Neutrophils # 7.2 (1.6-8.9) K/mcL BMP 05/12/18 06:28 Sodium 140 Potassium 4.2 Chloride 109 H Carbon Dioxide 27 BUN 24 H Creatinine 1.71 H Glucose 109 H Calcium 9.1 Liver Function 05/12/18 Range/Units 06:28 Albumin 3.6 (3.5-5.7) g/dL - Impressions Impressions Retroperitoneum Ultrasound 05/12/18 09:30 IMPRESSION: Complex right renal cystic lesion concerning for cystic neoplasm. Recommend further evaluation with dedicated CT or MRI of the kidneys with contrast. Small postvoid residual volume. D/ / Eladia Dotson MD / Eladia Dotson MD Interpreting Provider: Eladia Dotson MD Consult Discharge Plan - Plan Referrals: Lucy Mackay, COST AND SALES RECORD SUPERVISOR [Primary Care Provider] - (4) Cellulitis Qualifiers: Site of cellulitis: other site Qualified Code(s): L03.818 - Cellulitis of other sites
[2018-05-12] MEDS ORDERED: Perflutren Lipid Microsphere 1.3 ML in 0.9 % Sodium Chloride 8.7 ML IVP ONE (15:18)
[2018-05-12] MEDS ORDERED: Perflutren Lipid Microsphere 2 ML VIAL ONE (15:21)
--- NOTE | 2018-05-12 15:27 | Nephrology Progress Note ---
Date of Encounter: 05/12/18 Time of Encounter: 15:24 - Assessment and Plan (1) CKD (chronic kidney disease), stage III Current Visit: Yes Status: Acute Renal risk factors: DM, Obesity, CHF hx. I saw in his PCP's notes that he had seen a bundle breaker outside of the [place] system, but I could not find any Consult notes from Nephro. There was also a comment in the encounter with his PCP from last week in which he reported that he stopped follow up with his bundle breaker. Recommend f/u when discharged with [facility]. Continue 40 mg PO Lasix daily to see if it is an adequate home dose. (2) DAHLIA (acute kidney injury) Current Visit: Yes Status: Acute DAHLIA on CKD stage III with cellulitis, recent hvy use of NSAIDs, hemodynamics and hence multifactorial etiologies appear to be contributing in the setting of CKD stage III from DM. Should hold Lisinopril. Scr improved at 1.71 and GFR is 41. Avoid nephrotoxins. (3) Diabetic renal disease Current Visit: Yes Status: Chronic His longstanding DM is likely a contributor to his CKD. Qualifiers: Diabetes mellitus type: type 2 Qualified Code(s): E11.21 - Type 2 diabetes mellitus with diabetic nephropathy (4) Cellulitis Current Visit: Yes Status: Acute As per primary, but I recommend caution with dual Vano and Zosyn as this combo has a higher potential for ATN from nephrotoxicity, and he already has DAHLIA on CKD 3. Qualifiers: Site of cellulitis: other site Qualified Code(s): L03.818 - Cellulitis of other sites (5) Peripheral edema Current Visit: Yes Status: Acute Acute on Chronic likely multifactorial in etiology with dietary indiscretion plus known systolic HF. Recommend Echo as he may be in Acute on chronic systolic HF. The peripheral edema has also likely contributed to his Cellulitis. (6) Chronic systolic CHF (congestive heart failure) Current Visit: Yes Status: Chronic Per primary Subjective Principal diagnosis: rle cellulitis Interval history: Pt seen and examined. Appears very unkept, RLE smells foul. Objective - Vital Signs Vital signs: Vital Signs Temp Pulse Resp BP Pulse Ox 05/12/18 13:27 97.9 F 56 16 159/63 91 05/12/18 10:25 16 94 05/12/18 10:12 97.8 F 58 16 155/83 93 05/12/18 06:56 97.6 F 65 17 189/71 94 05/12/18 04:57 16 92 05/12/18 03:47 98.3 F 62 15 190/81 92 05/11/18 23:30 98 F 62 15 168/64 92 05/11/18 21:34 18 93 05/11/18 20:33 98.2 F 64 15 193/70 92 Intake and Output 05/11/18 05/12/18 05/12/18 23:59 07:59 15:59 Intake Total 640 / 640 220 / 220 340 / 340 Output Total 0 / 0 160 / 160 Balance 640 / 640 60 / 60 340 / 340 Intake: IV Fluids 100 / 100 100 / 100 Zosyn 3.375 GM In 0.9 % Sodium 100 / 100 100 / 100 Chloride (Mini-Bag +) 100 ML @ 25 mls/hr IVPB Q8HR [facility] Rx#: [id number] Oral 640 / 640 120 / 120 240 / 240 Output: Urine 0 / 0 160 / 160 Other: Meal Breakfast Percent of Meal Consumed 25% Stool Size Large Stool Consistency formed Stool Color Brown # Voids 1 1 # Bowel Movements 0 0 Weight 149.4 kg 148.3 kg Blood Glucose* 103 98 64 Patient Weight 05/12/18 23:59 Weight 148.3 kg - General Appearance General appearance: Present: well-developed, well-nourished EENT: Present: ATNC, hearing intact, vision intact Neck: Present: supple Respiratory: Present: clear Cardiology: Present: edema (Trace bilat lower extremity edema.), normal S1, normal S2 Gastrointestinal: Present: normoactive bowel sounds, no tenderness, no guarding Integumentary: Present: no rash, warm and dry Neurologic: Present: alert and oriented x3 Psychiatric: Present: mood/affect appropriate, cooperative - Lab 05/12/18 06:28 05/12/18 06:28 Most recent lab results Calcium 9.1 mg/dL (8.6-10.3) 05/12/18 06:28 Phosphorus 2.4 mg/dL (2.7-4.5) L 05/12/18 06:28 Magnesium 2.0 mg/dL (1.6-2.6) 05/12/18 06:28 Consult Discharge Plan - Plan Referrals: Lucy Mackay MARY CARMEN [Primary Care Provider] -
[2018-05-12] MEDS: *HR* Heparin 5,000 UNIT/ML VIAL SQ SCH (17:04)
[2018-05-12 21:43] LABS: Bilirubin,Urine Negative (Negative); Blood,Urine Trace (Negative); Clarity,Urine Clear (Clear); Color,Urine Yellow (Yellow); Glucose,Urine (UA) 100 mg/dL (Normal); Ketones,Urine Negative (Negative); Leukocyte Esterase,Urine Negative (Negative); Nitrite,Urine Negative (Negative); PH,Urine 7.5 pH Units (5.0-8.0); Protein,Urine >=300 mg/dL (Neg-Trace); Specific Gravity,Urine 1.014 (1.010-1.025); Urobilinogen,Urine Normal (Normal)
[2018-05-12 21:46] LABS: Bacteria,Urine None Seen per hpf (None-Few); Hyaline Casts,Urine None Seen per lpf (None-Few); RBC,Urine 15-30 per hpf (0-3); Squamous Epithelial Cell,Urine Moderate per lpf (None-Few); WBC,Urine 0-3 per hpf (0-3)
[2018-05-12] MEDS: hydrOXYzine pamoate 25 MG CAPSULE PO PRN (22:04)
[2018-05-13] MEDS: *HR* HYDROcodone/Acet 5/325 mg TABLET PO PRN ×3 (03:09→13:31)
[2018-05-13] MEDS: 0.9 % Sodium Chloride PF in SYR 10 ML VIAL IVP SCH ×2 (03:57→10:49)
[2018-05-13] MEDS: Ipratropium/Albuterol Neb 3 ML IH SCH ×2 (04:41→11:11)
[2018-05-13 06:43] LABS: Basophils # 0.1 K/mcL (0.0-0.2); Basophils % 0.7 %; Eosinophils # 0.2 K/mcL (0.0-0.6); Eosinophils % 2.8 %; Hematocrit 49.8 % (37.5-50.1); Hemoglobin 16.1 g/dL (12.9-16.9); Immature Granulocytes % 0.4 % (0-4); Lymphocytes # 1.5 K/mcL (0.6-4.6); Lymphocytes % 20.1 %; Mean Corpuscular HGB Conc 32.3 g/dL (31.6-35.5); Mean Corpuscular Hemoglobin 30.3 pg (28.0-33.3); Mean Corpuscular Volume 93.8 fL (83.0-100.0); Mean Platelet Volume 9.5 fL (9.4-12.4); Monocytes # 0.4 K/mcL (0.0-1.3); Monocytes % 5.8 %; Neutrophils # 5.2 K/mcL (1.6-8.9); Platelet Count 145 K/mcL (140-400); Red Blood Count 5.31 M/mcL (4.19-5.50); Red Cell Distribution Width 13.9 % (11.5-14.5); Segmented Neutrophils % 70.2 %
[2018-05-13 07:03] LABS: Albumin 3.6 g/dL (3.5-5.7); Calcium 9.2 mg/dL (8.6-10.3); Phosphorous 3.5 mg/dL (2.7-4.5); Potassium 4.4 mEq/L (3.5-5.1)
[2018-05-13] MEDS: amLODIPine 5 MG TABLET PO SCH (08:00)
[2018-05-13] MEDS: Aspirin Enteric Coated 325 MG Tablet PO SCH (08:01)
[2018-05-13] MEDS: Nicotine 21 MG PATCH.TD24 TD SCH (08:02)
[2018-05-13] MEDS: Furosemide 40 MG TABLET PO SCH (08:02)
[2018-05-13] MEDS: *HR* Heparin 5,000 UNIT/ML VIAL SQ SCH (08:10)
[2018-05-13] MEDS: Piperacillin/Tazobactam 3.375 GM in 0.9 % Sodium Chloride Mini Bag 100 ML IVPB SCH (08:16)
[2018-05-13] MEDS: Insulin LISPRO 300 UNITS/3 ML VIAL SQ SCH ×2 (08:20→11:39)
[2018-05-13 09:56] VITALS: BP 166/75
[2018-05-13] MEDS ORDERED: cefTRIAXone 1,000 MG in Water for inj. (sterile) 20 ML 10 ML IVP SCH (10:00)
--- NOTE | 2018-05-13 11:04 | Internal Med Progress Note ---
Hospitalist Progress Note - Encounter Date of Encounter: 05/13/18 Time of Encounter: 11:00 - Exam Vitals: Temp Pulse Resp BP Pulse Ox 98.4 F 66 16 166/75 90 05/13/18 09:53 05/13/18 09:53 05/13/18 09:53 05/13/18 09:53 05/13/18 09:53 Exam: General appearance: Present: cooperative, A&O X 3, morbidly obese, pleasant. - Head Head exam: Present: atraumatic, normocephalic - Eye Eye exam: Present: PERRL, conjuntiva pink, sclera anicteric Pupils: Present: PERRL - Neck Neck exam general surgery: Present: supple, trachea midline. Absent: lymphadenopathy - Respiratory Respiratory exam: Present: decreased breath sounds, wheezes - Cardiovascular Cardiovascular exam: Present: RRR, +S1, +S2. Absent: diastolic murmur, gallop, rubs, systolic murmur - GI/Abdominal GI/Abdominal exam: Present: normal bowel sounds - Extremities Exam Extremities exam: Present: joint swelling, bilat 2/3rds lower ext. , tenderness Additional comments: 2+ non-pitting edema, with serous drainage, erythema right anterior tibia, left pedal edema with erythema distal 2/3rds lower ext. - Neurological Exam Neurological exam: Present: CN II-XII intact, oriented X3, no focal deficits. Absent: pronater drift, facial droop, speech deficit - Psychiatric Psychiatric exam: Present: normal affect, normal mood - Skin Skin exam: Present: erythema, and multiple LE blisters. Additional comments: - Assessment and Plan (1) Cellulitis Status: Acute Assessment and Plan: Mr. Miller is a 62 year old male who enters through the emergency room for chief complaint of swelling pain and infection of the lower limbs, and shortness of breath. He states that he was seen by his primary care and that they recommended that he be seen in the emergency room for cellulitis of the lower extremities. Reports that onset of signs and symptoms occurred approximately 1-1/2 months ago, and has worsened over time. He states that he has areas on the areas on the right anterior mazariegos that are draining a serous fluid. He had been using hydrogen peroxide for about a week w/o improvement in the drainage or the swelling of the lower extremities. He was started on vancomycin and zosyn for his lower extremity cellulitis. He had improvement in his symptoms. Wound cultures came back growing providencia and MRSA. He was seen by ID who determined he could be discharged on a 10 day course of bactrim. He was also noted to have an DAHLIA on CKD stage 3 and he was seen by renal. He will follow up with them as an outpatient. 35minutes was spent discharging this patient (2) DAHLIA (acute kidney injury) Status: Acute Assessment and Plan: Stable. Creatinine around baseline (3) CKD (chronic kidney disease), stage III Status: Acute Assessment and Plan: OUtpatient follow up with renal (4) Type II diabetes mellitus Status: Acute Assessment and Plan: Insulin as needed (5) Chronic systolic CHF (congestive heart failure) Status: Chronic Assessment and Plan: Continue lasix - Time Spent with Patient Total time spent is greater than 50% in coordination of care (as documented) at patient's floor/unit and/or counseling patient: Internal Medicine: Result - Labs CBC & Chem 7: 05/13/18 06:29 05/13/18 06:29 Labs: Short CBC 05/13/18 Range/Units 06:29 WBC 7.5 (4.3-11.1) K/mcL Hgb 16.1 (12.9-16.9) g/dL Hct 49.8 (37.5-50.1) % Plt Count 145 (140-400) K/mcL Neutrophils # 5.2 (1.6-8.9) K/mcL BMP 05/13/18 06:29 Sodium 140 Potassium 4.4 Chloride 108 H Carbon Dioxide 26 BUN 28 H Creatinine 1.94 H Glucose 107 H Calcium 9.2 Liver Function 05/13/18 Range/Units 06:29 Albumin 3.6 (3.5-5.7) g/dL Urine 05/12/18 Range/Units 21:30 Urine Color Yellow (Yellow) Urine Clarity Clear (Clear) Urine pH 7.5 (5.0-8.0) pH Units Ur Specific [place] 1.014 (1.010-1.025) Urine Protein >=300 H (Neg-Trace) mg/dL Urine Glucose (UA) 100 H (Normal) mg/dL - Impressions Impressions Retroperitoneum Ultrasound 05/12/18 09:30 IMPRESSION: Complex right renal cystic lesion concerning for cystic neoplasm. Recommend further evaluation with dedicated CT or MRI of the kidneys with contrast. Small postvoid residual volume. D/ / Eladia Dotson MD / Eladia Dotson MD Interpreting Provider: Eladia Dotson MD Consult Discharge Plan - Plan Instructions: Cellulitis (DC) Additional Instructions: Cleanse bilateral lower extremities with CHG soap daily and keep elevated as often as tolerated. F/U with PCP on 05/16. Referrals: Lucy Mackay CNP [Primary Care Provider] - 05/21/18 1:00 pm Brice Mcintosh DO [Partnered Physician] - 06/18/18 10:30 am Prescriptions: amLODIPine [Norvasc] 5 mg PO DAILY #30 tablet Sulfamethoxazole/Trimeth DS [Bactrim DS] 1 each PO BID 10 Days #20 tablet (1) Cellulitis Qualifiers: Site of cellulitis: other site Qualified Code(s): L03.818 - Cellulitis of other sites (4) Type II diabetes mellitus Qualifiers: Diabetes mellitus extermination inspector insulin use: without longterm use Diabetes mellitus complication status: without complication Qualified Code(s): E11.9 - Type 2 diabetes mellitus without complications
--- NOTE | 2018-05-13 11:44 | Discharge Summary ---
Date of Encounter: 05/13/18 Time of Encounter: 11:00 - Discharge Diagnosis (1) Cellulitis Priority: Primary Status: Acute Assessment and Plan: Mr. Miller is a 62 year old male who enters through the emergency room for chief complaint of swelling pain and infection of the lower limbs, and shortness of breath. He states that he was seen by his primary care and that they recommended that he be seen in the emergency room for cellulitis of the lower extremities. Reports that onset of signs and symptoms occurred approximately 1-1/2 months ago, and has worsened over time. He states that he has areas on the areas on the right anterior mazariegos that are draining a serous fluid. He had been using hydrogen peroxide for about a week w/o improvement in the drainage or the swelling of the lower extremities. He was started on vancomycin and zosyn for his lower extremity cellulitis. He had improvement in his symptoms. Wound cultures came back growing providencia and MRSA. He was seen by ID who determined he could be discharged on a 10 day course of bactrim. He was also noted to have an DHALIA on CKD stage 3 and he was seen by renal. He will follow up with them as an outpatient. 35minutes was spent discharging this patient Qualifiers: Site of cellulitis: other site Qualified Code(s): L03.818 - Cellulitis of other sites (2) DAHLIA (acute kidney injury) Priority: Primary Status: Acute (3) CKD (chronic kidney disease), stage III Priority: Secondary Status: Acute (4) Type II diabetes mellitus Priority: Secondary Status: Acute Qualifiers: Diabetes mellitus mcc insulin use: without mcc use Diabetes mellitus complication status: without complication Qualified Code(s): E11.9 - Type 2 diabetes mellitus without complications (5) Chronic systolic CHF (congestive heart failure) Priority: Secondary Status: Chronic Hospital course: Mr. Miller is a 62 year old male - Time Spent with Patient Total time spent providing and/or coordinating discharge services: - Discharge Medications Prescriptions: amLODIPine [Norvasc] 5 mg PO DAILY #30 tablet Sulfamethoxazole/Trimeth DS [Bactrim DS] 1 each PO BID 10 Days #20 tablet Home Medications: Albuterol Sulfate [Proair Hfa] 2 puff IH Q4H PRN 05/10/18 [History] Ascorbic Acid [Vitamin C] 100 mg PO DAILY 05/10/18 [History] Aspirin Enteric Coated [Aspirin EC] 325 mg PO DAILY 05/10/18 [History] Carvedilol 3.125 mg PO BID 05/10/18 [History] Furosemide [Lasix] 20 mg PO QAM 05/10/18 [History] Furosemide [Lasix] 40 mg PO QPM PRN 05/10/18 [History] HydrOXYzine Pamoate [Vistaril] 50 mg PO Q8H 05/10/18 [History] Ipratropium/Albuterol Neb [Duoneb] 3 ml IH Q6HR 05/10/18 [History] Lisinopril [Zestril] 40 mg PO DAILY 05/10/18 [History] Simvastatin [Zocor] 20 mg PO HS 05/10/18 [History] Tamsulosin [Flomax] 0.4 mg PO DAILY 05/10/18 [History] Vitamin E 1,000 unit PO DAILY 05/10/18 [History] glyBURIDE [GlyBURIDE] 5 mg PO DAILY 05/10/18 [History] Sulfamethoxazole/Trimeth DS [Bactrim DS] 1 each PO BID 10 Days #20 tablet [Rx] amLODIPine [Norvasc] 5 mg PO DAILY #30 tablet 05/13/18 [Rx] Allergies/Adverse Reactions: 3 Allergy/AdvReac Type Severity Reaction Status Date / Time No Known Allergies Allergy Verified 05/10/18 10:33 Date of admission: 05/11/18 19:02 Primary care physician: Lucy Mackay CNP Consults: 05/13/18 10:51 Consult to Infectious Diseases [CONS] Routine Consulting Provider: Infectious Disease Beth Reason for Consult: bilateral cellulitis wit mrsa ad providenia, duration of antibiotics Call Completed: Yes - Constitutional Vitals: Temp Pulse Resp BP Pulse Ox 98.4 F 66 16 166/75 90 05/13/18 09:53 05/13/18 09:53 05/13/18 09:53 05/13/18 09:53 05/13/18 09:53 General appearance: Present: cooperative, A&O X 3, morbidly obese, pleasant Exam: NAD - Head Head exam: Present: atraumatic, normocephalic - Eye Eye exam: Present: PERRL, conjuntiva pink, sclera anicteric Pupils: Present: PERRL - Neck Neck exam general surgery: Present: supple, trachea midline. Absent: lymphadenopathy - Respiratory Respiratory exam: Present: CTAB. Absent: accessory muscle use, rales, rhonchi, wheezes - Cardiovascular Cardiovascular exam: Present: RRR, +S1, +S2. Absent: diastolic murmur, gallop, rubs, systolic murmur - GI/Abdominal GI/Abdominal exam: Present: normal bowel sounds, soft, no peritoneal signs. Absent: distended, tenderness - Extremities Exam Extremities exam: Present: warm, radial pulses palpable and symmetrical. Absent : calf tenderness, cyanotic, pedal edema - Neurological Exam Neurological exam: Present: CN II-XII intact, oriented X3, no focal deficits. Absent: pronater drift, facial droop, speech deficit - Skin Skin exam: Present: dry, intact - Patient Status Disposition: Home, Self-Care Condition: Fair - Discharge Instructions Instructions: Cellulitis (DC) Follow Up With: Lucy Mackay CNP [Primary Care Provider] - 05/21/18 1:00 pm Brice Mcintosh DO [Partnered Physician] - 06/18/18 10:30 am Additional Instructions: Cleanse bilateral lower extremities with CHG soap daily and keep elevated as often as tolerated. F/U with PCP on 05/16.
--- NOTE | 2018-05-13 15:08 | Infectious Disease Consult ---
Date of Encounter: 05/13/18 Time of Encounter: 15:06 Assessment and Plan (1) Fatty liver Status: Acute (2) Cellulitis Status: Acute Assessment and plan: Improved. Really not impressive presentation Cultures positive for MRSA and from dementia both of which are susceptible to MRSA Creatinine clearance measured at about 42and ideally bodyweight Will give Bactrim DS one tablet by mouth twice a day for 10 days No further recommendations needed Inflammatory markers no imaging Placement contact isolation Will follow-up when necessary Qualifiers: Site of cellulitis: other site Qualified Code(s): L03.818 - Cellulitis of other sites (3) DAHLIA (acute kidney injury) Status: Acute (4) Chronic systolic CHF (congestive heart failure) Status: Chronic (5) Type II diabetes mellitus Status: Acute Qualifiers: Diabetes mellitus senior living insulin use: without senior living use Diabetes mellitus complication status: without complication Qualified Code(s): E11.9 - Type 2 diabetes mellitus without complications (6) Flea infestation Status: Acute Infectious Disease HPI - Data of Consult Patient: new to practice Consult date: 05/13/18 Requesting Physician: Nakia Proctor MD Primary Care Provider: Lucy Mackay CNP - Consult Narrative Reason for consult: cellulitis History of present illness: Mr. Miller is a 62 year old male Patient is 62-year-old gentleman who is a poor historian who apparently has history of diabetes mellitus type 2, hypertension and congestive heart failure. Also tells me he has liver disease due to fatty liver patient apparently came in complaining of swelling and pain and infection of the lower limbs. He tells me he will at That he was previously for many had a lot of fluids and that is why he got infection. Patient was not a great historian. His answers were ambiguous. Either way patient was admitted and swab culture was obtained of the right leg which was positive for chronic dementia and MRSA. Patient tells me that previously had a bacteria in his bloodstream but he does not know which one it was and how he was treated. He tells me it was removed over a couple years ago. Today when I evaluated the patient really I did not observe any obvious cellulitis. There was a scab and dry skin but no benito cellulitis there was no erythema, edema or warmth to touch. CC: Nakia Proctor MD Past Med Surg Social Fam HX - Past Medical History Medical history: CHF, COPD, diabetes, hypertension, myocardial infarction Psychiatric history: no psych history - Social History Smoking Status: Heavy tobacco smoker Packs per day: 2 Smokeless Tobacco Status: Yes (2 PPD x 40+ years) Alcohol use: none Drug use: none Infectious Disease-CN:Meds Albuterol Sulfate [Proair Hfa] 2 puff IH Q4H PRN 05/10/18 [History] Ascorbic Acid [Vitamin C] 100 mg PO DAILY 05/10/18 [History] Aspirin Enteric Coated [Aspirin EC] 325 mg PO DAILY 05/10/18 [History] Carvedilol 3.125 mg PO BID 05/10/18 [History] Furosemide [Lasix] 20 mg PO QAM 05/10/18 [History] Furosemide [Lasix] 40 mg PO QPM PRN 05/10/18 [History] HydrOXYzine Pamoate [Vistaril] 50 mg PO Q8H 05/10/18 [History] Ipratropium/Albuterol Neb [Duoneb] 3 ml IH Q6HR 05/10/18 [History] Lisinopril [Zestril] 40 mg PO DAILY 05/10/18 [History] Simvastatin [Zocor] 20 mg PO HS 05/10/18 [History] Tamsulosin [Flomax] 0.4 mg PO DAILY 05/10/18 [History] Vitamin E 1,000 unit PO DAILY 05/10/18 [History] glyBURIDE [GlyBURIDE] 5 mg PO DAILY 05/10/18 [History] Sulfamethoxazole/Trimeth DS [Bactrim DS] 1 each PO BID 10 Days #20 tablet [Rx] amLODIPine [Norvasc] 5 mg PO DAILY #30 tablet 05/13/18 [Rx] 3 Allergy/AdvReac Type Severity Reaction Status Date / Time No Known Allergies Allergy Verified 05/10/18 10:33 Review of systems: 10 point review of systems done, negative other for what is mentioned in history of present illness Exam - Constitutional Vitals: Temp Pulse Resp BP Pulse Ox 98.4 F 66 16 166/75 90 05/13/18 09:53 05/13/18 09:53 05/13/18 09:53 05/13/18 09:53 05/13/18 09:53 General appearance: cooperative, disheveled, no acute distress, no febrile - Respiratory Respiratory exam: Present: CTAB. Absent: wheezes - Cardiovascular Cardiovascular exam: Present: RRR, +S1, +S2 - GI/Abdominal GI/Abdominal exam: Present: normal bowel sounds, soft. Absent: tenderness - Extremities Exam Extremities exam: Present: full ROM. Absent: joint swelling Additional comments: There is a dried scabbed area on the anterior part of right lower extremity. . - Neurological Exam Neurological exam: Present: alert, oriented X3 Infectious Disease CN: Results - Labs CBC & Chem 7: 05/13/18 06:29 05/13/18 06:29 Serology: Serology 05/12/18 05/12/18 Range/Units 21:30 21:30 Urine Color Yellow (Yellow) Urine Clarity Clear (Clear) Urine pH 7.5 (5.0-8.0) pH Units Ur Specific [place] 1.014 (1.010-1.025) Urine Protein >=300 H (Neg-Trace) mg/dL Urine Glucose (UA) 100 H (Normal) mg/dL Urine Ketones Negative (Negative) mg/dL Urine Blood Trace H (Negative) Urine Nitrite Negative (Negative) Urine Bilirubin Negative (Negative) Urine Urobilinogen Normal (Normal) mg/dL Ur Leukocyte Esterase Negative (Negative) Urine Microscopic RBC 15-30 H (0-3) per hpf Urine Microscopic WBC 0-3 (0-3) per hpf Ur Eosinophil Smear 0 (None Seen) % Ur Squamous Epith Cells Moderate H (None-Few) per lpf Urine Bacteria None Seen (None-Few) per hpf Hyaline Casts None Seen (None-Few) per lpf Consult Discharge Plan - Plan Instructions: Cellulitis (DC) Additional Instructions: Cleanse bilateral lower extremities with CHG soap daily and keep elevated as often as tolerated. F/U with PCP on 05/16. Referrals: Lucy Mackay CNP [Primary Care Provider] - 05/21/18 1:00 pm Brice Mcintosh DO [Partnered Physician] - 06/18/18 10:30 am Prescriptions: amLODIPine [Norvasc] 5 mg PO DAILY #30 tablet Sulfamethoxazole/Trimeth DS [Bactrim DS] 1 each PO BID 10 Days #20 tablet
== END 2018-05-13 13:52 | disposition home or self-care (01) | DRG 603 ==
LOC: 3ANU 10:30 → EMEROOARM 10:30 → 3ANU 14:38
PROVIDERS: ADMIT Internal Medicine; ATTEND Internal Medicine